=== PATIENT | female | born 1980 | race Two or more races ===

== ENCOUNTER 2021-02-24 01:43 | Emergency (ER) | payer MEDICAID ==
[~2021-02-24] VITALS: Ht 157.5 cm; Wt 85.0 kg
[2021-02-24] MEDS ORDERED: LIDOCAINE 5% TRANSDERMAL PATCH TD ONE (02:30)
[2021-02-24] MEDS ORDERED: ACETAMINOPHEN 500 MG TABLET PO ONE (02:30)
[2021-02-24 04:56] VITALS: BP 132/68
== END 2021-02-24 06:32 | disposition home or self-care (01) ==
LOC: EMS 01:48
DX: M25.531 Pain in right wrist (principal); M54.5 Low back pain; M79.645 Pain in left finger(s); Z88.0 Allergy status to penicillin
CPT/HCPCS: 72100; 99284; 73110-TC; 73140-TC; Z7502; Z7610